=== PATIENT | male | born 1950 | race Caucasian/White ===

== ENCOUNTER 2022-04-30 11:39 | Emergency (ER) | payer OTHER, MEDICAID ==
[~2022-04-30] VITALS: Ht 170.2 cm; Wt 80.0 kg
[2022-04-30 11:57] VITALS: BP 141/76
[2022-04-30] MEDS ORDERED: ACETAMINOPHEN WITH CODEINE 300/30MG TABLET PO ONE (16:15)
[2022-04-30] MEDS ORDERED: ACET-2708 MT (17:57)
[2022-04-30 18:28] LABS: BASOPHILS % 0.3 % (0.0-2.0); EOSINOPHILS % 0.3 % (0.0-5.0); HEMATOCRIT. 41.8 % (42.0-52.0); HEMOGLOBIN. 13.8 g/dL (14.0-18.0); LYMPHOCYTES % 8.6 % (20.0-50.0); MEAN CORPUSCULAR HEMOGLOBIN 27.9 pg (28.0-32.0); MEAN CORPUSCULAR VOLUME 84.4 fL (80.0-94.0); MEAN PLATELET VOLUME 8.8 fl (7.4-10.4); MONOCYTES % 5.5 % (2.0-8.0); NEUTROPHILS % 85.3 % (40.0-76.0); PLATELET 290 x1000/uL (130-400); RED BLOOD CELL COUNT 4.95 mill/uL (4.7-6.1)
[2022-04-30 18:51] LABS: CHLORIDE 104 mEq/L (98-107)
[2022-04-30] MEDS ORDERED: IOHEXOL-300 100 ML BOTTLE ONE (19:16)
== END 2022-04-30 23:06 | disposition home or self-care (01) ==
LOC: ER 11:39
DX: S16.1XXA Strain of muscle, fascia and tendon at neck level, initial encounter (principal); S82.141A Displaced bicondylar fracture of right tibia, initial encounter for closed fracture; S82.491A Other fracture of shaft of right fibula, initial encounter for closed fracture; S89.81XA Other specified injuries of right lower leg, initial encounter; I10 Essential (primary) hypertension; M25.511 Pain in right shoulder; M54.9 Dorsalgia, unspecified; V43.52XA Car driver injured in collision with other type car in traffic accident, initial encounter; Y93.89 Activity, other specified; Y92.410 Unspecified street and highway as the place of occurrence of the external cause
CPT/HCPCS: 36415; 71045; 73562; 73590; 73700; 80048; 85025; 93005; 99285; Q9967